=== PATIENT | male | born 2000 | race Caucasian/White ===

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

== ENCOUNTER → 2020-09-22 | Outpatient (CLI) | payer OTHER, SELFPAY ==
[2020-09-22 12:51] VITALS: BMI 19.2
== END | disposition home or self-care (01) ==
PROVIDERS: Physician Assistant Medical; Referring Provider Physician Assistant Surgical; Visit Provider Physician Assistant Surgical
DX: Z20.828 Contact with and (suspected) exposure to other viral communicable diseases (principal)
CPT/HCPCS: 87635; U0003

== ENCOUNTER 2024-05-30 13:57 | Emergency (ER) | payer OTHER, SELFPAY ==
[2024-05-30] VITALS (8 sets, daily range): BP systolic 126–166; BP diastolic 81–119; PULSE 95–120; RESP 14–18; TEMP 36.5–36.6; O2SAT 97–100; BMI 19.9
--- NOTE | 2024-05-30 14:35 | EKG12_ITS ---
Test Reason : NECK PAIN Blood Pressure : / mmHG Vent. Rate : 093 BPM Atrial Rate : 093 BPM P-R Int : 138 ms QRS Dur : 104 ms QT Int : 378 ms P-R-T Axes : 082 089 007 degrees QTc Int : 469 ms Normal sinus rhythm with sinus arrhythmia T wave abnormality, consider inferior ischemia Abnormal ECG Confirmed by NADER ROMERO, PAMELA ([id number]), magazine editor KALYAN PIKE ([id number]) on 06/03/2024 6:30:13 AM Referred By: Confirmed By:TIMO DOE MD
--- NOTE | 2024-05-30 14:38 | EDS_ITS ---
HPI History of Present Illness Chief Complaint: Other, Pain/Inj Informant: patient and parent Narrative Narrative: Presents by EMS from school multiple symptoms. Patient reports awaking yesterday nontraumatic neck pain. Severe throughout the day. This morning woke up with worsening pain. He is a student at the school he had a test to take during the test symptoms worsen. EMS was contacted. States he feels discomfort epigastrium since being with EMS. He is feeling paresthesias of his face and arm. He states paresthesia goes down to his elbow on the right side. Never had similar symptoms in the past. Mother denies any family history of multiple scl erosis. He has no allergies. Denies any past medical history. Prior similar symptoms: No PFSH PFSH Medical History Back pain Neck pain Tibia/fibula fracture history of broken arm Hernia Home Medications ?Medication ?Instructions ?Recorded ?Last Taken ?Type NK 05/30/24 Unknown History Allergy/AdvReac Type Severity Reaction Status Date / Time No Known Allergies Allergy Verified 12/27/23 09:12 Surgical History Hx of adenoidectomy History of tonsillectomy Social History Smoking Status: Never smoker alcohol intake: never substance use type: does not use what type of physical activity do you participate in: walking and other details: basketball and golf ROS ROS ED Constitutional Constitutional ED: Denies chills, fever(s) or sweats Eyes Eyes: Denies change in vision ENT ENT ED: Denies dysphagia or sore throat Cardiovascular Cardiovascular: Denies chest pain, leg edema, palpitations or racing heartbeat Respiratory/Chest Respiratory/Chest: Denies cough, dyspnea or dyspnea on exertion Gastrointestinal Gastrointestinal: Reports abdominal pain; Denies diarrhea, nausea or vomiting Genitourinary Genitourinary ED: Denies dysuria, hematuria or urinary frequency Musculoskeletal Musculoskeletal: Reports neck pain; Denies back pain or extremity pain Integumentary Denies rash or wounds Neurologic Neurologic: Reports paresthesias; Denies headache(s) or weakness EXAM Physical Exam Const Vital Signs: 05/30/24 13:59 05/30/24 14:58 05/30/24 15:00 Temperature 97.7 F L Temperature Source Oral Pulse Rate 95 110 H 101 H Respiratory Rate 14 15 16 Respiratory Effort Respiratory Pattern Blood Pressure 166/97 H 162/119 H 166/95 H Blood Pressure Mean 120 133 118 Pulse Ox 100 97 98 Oxygen Delivery Method Room Air Room Air Room Air 05/30/24 16:00 05/30/24 16:16 Temperature Temperature Source Pulse Rate 120 H Respiratory Rate 18 Respiratory Effort Normal Respiratory Pattern Normal Blood Pressure 149/83 H Blood Pressure Mean 105 Pulse Ox 99 Oxygen Delivery Method Room Air Positive well nourished and well developed Constitutional Narrative: Sweaty, anxious, nontoxic General Appearance ED: well developed HEENT Reports moist mucous membranes normocephalic and atraumatic Eyes EOMs intact bilaterally and conjunctivae normal General Eye ED: Yes normal appearance of both eyes Neck no lymphadenopathy and supple Neck Narrative: Placed in c-collar by EMS, removed, paracervical tightening. No midline step- offs. General: tenderness Chest Wall Chest: Negative for tenderness Resp normal respiratory effort and normal air movement Resp Narrative: Symmetric breath sounds. Effort and Inspection: symmetric chest movement; Negative for respiratory distress Cardio regular rate, regular rhythm and no murmurs Peripheral Pulses: pulses 2+ throughout GI normal to inspection, nondistended, normoactive bowel sounds GI Narrative: Mild epigastric tenderness. Negative Christensen's or McBurney's tenderness. Palpation: Negative for guarding or rebound tenderness present Back/Spine no CVA tenderness and no thoracic nor lumbar tenderness Extremity normal to inspection General Extremety ED: Negative for edema or tenderness General Extremity: Negative for edema Neuro oriented x3 and CN's II-XII intact bilaterally Neuro Narrative: Subjective paresthesias right upper arm compared to the left. Sensorium / Orientation: awake and alert Skin no rashes or lesions noted and no wounds MDM MDM MDM Narrative Medical decision making narrative: Interventions / MDM: Differential diagnosis: Neck pain, spinal cord abnormality, abdominal pain Diagnosis considered but do not suspect: Pneumothorax however x-ray negative. ACS however EKG with no ischemic findings, cardiac enzymes negative. My EKG interpretation: Sinus rate of 93, no ST changes. T wave inversion leads III. Nonspecific. Imaging independently reviewed and interpreted by myself: 1 view chest x-ray: No acute process. External documents reviewed: N/A Test considered but not ordered:N/A ED course: Patient appears anxious with paresthesias. Reported epigastric comfo rt. Normal labs and cardiac workup initiated. EKG with no concerning findings. Symptoms of neck pain worsening with arm paresthesias right greater than left. There is no weakness. Will obtain MRI cervical spine with and without contrast for further evaluation. 1545: After Ativan, symptoms in his abdomen subsided. Lab results at this time white count 5.16 and 15.9. Chest x-ray was negative. Having his neck pain, morphine ordered for comfort. Pending MRI study. 1630: Liver enzymes and renal function normal with mild hypokalemia 3.3. Troponin less than 3. Lipase pending. MRI cervical spine also pending at this time.Patient will be signed out to oncoming physician for disposition. Re-evaluation: stable Disposition discussed with patient/family/significant other: patient and family Case discussed with consulting clinician: N/A This note was generated with [employer] dictation software. It may contain incorrect words, spelling, and punctuation that were not noted in checking the note before signing. Lab Data Attestation: I reviewed the patient's lab results. Labs: Laboratory Results - last 24 hr 05/30/24 05/30/24 14:00 15:33 WBC 5.6 RBC 5.62 Hgb 15.9 Hct 47.9 MCV 85.2 MCH 28.3 MCHC 33.2 RDW Std Deviation 35.9 RDW Coeff of Letitia 11.7 Plt Count 274 MPV 9.0 Immature Gran % (Auto) 0.400 Neut % (Auto) 55.1 Lymph % (Auto) 30.2 [place] % (Auto) 9.8 Eos % (Auto) 3.6 Baso % (Auto) 0.9 Absolute Neuts (auto) 3.1 Absolute Lymphs (auto) 1.70 Nucleated RBC % 0 Sodium Cancelled 140 Potassium Cancelled 3.3 L Chloride Cancelled 109 H Carbon Dioxide Cancelled 24.0 Anion Gap Cancelled 7 BUN Cancelled 16 Creatinine Cancelled 1.16 Estim Creat Clear Calc Cancelled 106.89 Est GFR (MDRD) Af Amer Cancelled 100 Est GFR (MDRD) Non-Af Cancelled 83 BUN/Creatinine Ratio Cancelled 13.8 Glucose Cancelled 109 H Calcium Cancelled 9.1 Total Bilirubin Cancelled 1.50 H Direct Bilirubin Cancelled 0.34 H AST Cancelled 14 L ALT Cancelled 20 Alkaline Phosphatase Cancelled 70 Troponin I High Sens Cancelled < 3 L Total Protein Cancelled 7.2 Albumin Cancelled 4.0 Globulin Cancelled 3.2 Albumin/Globulin Ratio Cancelled 1.2 Radiography Diagnostic Testing: Clinical Impression(s) from Imaging Studies Chest X-Ray 05/30/24 15:20 IMPRESSION: Normal x-ray examination of the chest. Electronically Signed: Edouard Arcos MD at 15:28 EDT , Discharge Plan Triage Chief Complaint: Other, Pain/Inj Other Complaint: Back ED Provider: Reji Allen Dx/Rx/DC Orders Prescriptions: No Action NK Primary Care Provider: Flaca Gomez Referrals: Flaca Gomez MD [Primary Care Provider] - Print Language: Namibian
[2024-05-30 14:47] LABS: Absolute Neutrophil Count 3.1 X10^3/uL (2.0-7.7); Basophil# 0.05 X10^3/uL; Basophil% 0.9 % (0-1); Eosinophils% 3.6 % (0-5); Hematocrit 47.9 % (40-54); Hemoglobin 15.9 g/dL (13.0-16.5); Lymphocyte % 30.2 % (19-41); Mean Corp Hgb Conc 33.2 g/dL (32-36); Mean Corpuscular Hgb 28.3 pg (27.0-32.0); Mean Corpuscular Volume 85.2 fL (80-94); Monocyte# 0.55 X10^3/uL; Monocyte% 9.8 % (0-10); NRBC Flagged by Analyzer 0 % (0-5); Neutrophil % 55.1 % (47-70); Platelet Count 274 K/mm3 (150-450); RBC Distribution Width CV 11.7 % (11.6-14.6); RBC Distribution Width SD 35.9 fl (35.1-43.9); Red Blood Count 5.62 M/mm3 (4.6-6.2); White Blood Count 5.6 K/mm3 (4.4-11.0)
[2024-05-30] MEDS: 0.9% Normal Saline (500mL Bag) 500 ML 1000 ML IV (14:53)
[2024-05-30] MEDS: LORazepam 2 MG/ML Syringe 1 MG IV ×2 (14:53→18:59)
--- NOTE | 2024-05-30 15:02 | MRI_ITS ---
STUDY: MRI CERVICAL SPINE WITHOUT CONTRAST REASON FOR EXAM: Male, 23 years old. Neck pain, paresthesia to RT elbow TECHNIQUE: Standardized fat and water weighted pulse sequences were obtained in the sagittal and axial planes. COMPARISON: None FINDINGS: Normal foramen magnum and brainstem-cervical cord junction. Normal craniovertebral junction. Normal anterior atlantoaxial articulation. Normal odontoid process. There is straightening of the normal cervical lordosis. Normal vertebral bodies and posterior osseous elements. C2-3: Normal endplates. Normal disc height, signal and morphology. Normal central canal and intervertebral neural foramina. C3-4: Disc bulge with mild spurring. Normal central canal and intervertebral neural foramina. C4-5: Normal endplates. Normal disc height, signal and morphology. Normal central canal and intervertebral neural foramina. C5-6: Right paracentral disc protrusion, series 12 image 60. There is narrowing of the right lateral recess with mild canal stenosis. Mild right foraminal narrowing. C6-7: Disc bulge and mild spurring to the right. Normal central canal and intervertebral neural foramina. C7-T1: Normal endplates. Normal disc height, signal and morphology. Normal central canal and intervertebral neural foramina. Normal cervical cord. Normal visualized soft tissue structures. 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 Electronically Signed: Tyler Leger MD at 20:06 EDT ,
--- NOTE | 2024-05-30 15:20 | RAD_ITS ---
STUDY: X-RAY CHEST REASON FOR EXAM: Male, 23 years old. Pain TECHNIQUE: Single AP portable view of the chest. COMPARISON: None. FINDINGS: EKG electrodes are seen. Hyperinflation. The lungs are clear. There is no demonstrated pleural abnormality. Normal size heart. Normal mediastinum and elisa. Normal visualized pulmonary arteries. Normal visualized aortic arch and descending thoracic aorta. Normal visualized thoracic spine. Normal visualized ribs, clavicles, and shoulders. There is no demonstrated abnormality of the visualized soft tissue structures of the upper abdomen. RAD/Chest 1 View (Portable) IMPRESSION: Normal x-ray examination of the chest. Electronically Signed: Edouard Arcos MD at 15:28 EDT ,
[2024-05-30] MEDS: Morphine 4 MG/ML Syringe IV (16:02)
[2024-05-30 16:19] LABS: ALB/GLOB Ratio 1.2 RATIO (0.9-2.4); AST(SGOT) 14 U/L (15-37); Alanine Aminotransfer ALT/SGPT 20 U/L (16-61); Alkaline Phosphatase 70 U/L (45-117); Anion Gap 7 (5-15); BUN 16 mg/dL (7-18); BUN/Creat Ratio 13.8 RATIO (10-20); Bilirubin, Direct 0.34 mg/dL (0.00-0.30); Calcium,Total 9.1 mg/dL (8.5-10.1); Chloride 109 mmol/L (98-107); Creatinine, Serum 1.16 mg/dL (0.70-1.30); EST Glomerular Filtration Rate 83 mL/min (>60); Est Glom Filt Rate - Afr Amer 100 mL/min (>60); Estimated Creatinine Clearance 106.89 ml/min; Globulin 3.2 g/dL (2.2-4.2); Glucose 109 mg/dL (74-106); Potassium 3.3 mmol/L (3.5-5.1); Protein, Total 7.2 g/dL (6.4-8.2); Sodium Level 140 mmol/L (136-145); Troponin-I HS (w/2H Reflex) < 3 pg/mL (3.0-78.0)
[2024-05-30 17:15] LABS: Lipase 26 U/L (13-75)
[2024-05-30 17:41] LABS: Reflex Troponin-HS? (from REC) Y
--- NOTE | 2024-05-30 19:03 | CT_ITS ---
STUDY: CTA CHEST AND CTA ABDOMEN/PELVIS WITH CONTRAST REASON FOR EXAM: Male, 23 years old. Chest and abdomen pain RADIATION DOSAGE (If Supplied By Facility): CTDIvol = ( 8.36 ) mGy, DLP = ( 556.07 ) mGycm TECHNIQUE: The examination was performed with the intravenous administration of IV 100mL [id number]-[id number]. Post-processing of the angiographic images was performed, with multiplanar reformation and 3D reconstruction. Individualized dose optimization techniques were used for this CT. COMPARISON: No relevant priors. FINDINGS: CTA Chest Normal enhancement of the main pulmonary artery and right and left pulmonary arteries. Normal enhancement of the bilateral peripheral pulmonary arteries. There is no demonstrated pulmonary embolism. Normal thoracic aorta and visualized great vessels. There is no demonstrated aortic dissection. Normal heart and pericardium. Normal mediastinum. Normal hilar regions. Normal visualized trachea and bronchi. The lungs are well expanded. Normal pulmonary parenchyma. Normal pleura. Normal chest wall structures. Normal osseous structures. Normal visualized upper abdomen. CTA Abdomen T Pelvis The visualized lung bases are unremarkable. The visualized portions of the heart are within normal limits. Normal liver. Normal gallbladder and extrahepatic biliary system. Normal spleen. Normal pancreas. Normal bilateral adrenal glands. Normal right kidney. Normal left kidney. Normal visualized stomach. Normal small intestine. Normal colon. The appendix is visualized and appears normal. Normal abdominal aorta. No aneurysm or dissection. Normal inferior vena cava. Normal retroperitoneum. Normal urinary bladder. There is no free fluid in the abdomen or pelvis. Normal abdominal wall. Normal osseous structures. CT/CTA Chst, Abd, Pel W and/or WO IMPRESSION: Normal CTA chest and CT abdomen and pelvis with contrast. No aneurysm or dissection. No embolism seen. No mass or obstruction. Electronically Signed: Tyler Leger MD at 20:17 EDT ,
[2024-05-30 19:43] LABS: Troponin-I HS 5 pg/mL (3.0-78.0)
== END 2024-05-30 21:15 | disposition home or self-care (01) ==
PROVIDERS: Emergency Provider Emergency Medicine; PCP Internal Medicine; Visit Provider Emergency Medicine
DX: M50.80 Other cervical disc disorders, unspecified cervical region (principal); F41.9 Anxiety disorder, unspecified
CPT/HCPCS: 71045; 71275; 72141; 74174; 80053; 82248; 83690; 84484; 85025; 93005; 96361; 96374; 96375; 96376; 99284; J7040; Q9967; A4216